=== PATIENT | female | born 1985 | race Caucasian/White ===

== ENCOUNTER 2020-08-19 16:11 | Emergency (ER) | payer OTHER, BC ==
[2020-08-19] MEDS ORDERED: KETOROLAC 30 MG/ML VIAL IVP ONE (16:45)
[2020-08-19] MEDS ORDERED: NS IV 1000 ML 1,000 ML IV SCH ×2 (16:45→18:30)
[2020-08-19 17:12] LABS: HEMATOCRIT 32 % (35-52); HEMOGLOBIN 10.5 G/DL (11.5-16.0); MEAN CORPUSCULAR HEMOGLOBIN 30 PG (25-34); MEAN CORPUSCULAR HGB CONC 33 G/DL (32-36); MEAN CORPUSCULAR VOLUME 90 FL (80-99); PLATELET COUNT 137 10^3/uL (130-400); WHITE BLOOD COUNT 1.3 10^3/uL (4.3-11.0)
[2020-08-19 17:13] LABS: BASOPHILS % (AUTO) 0 % (0-10); EOSINOPHILS % (AUTO) 1 % (0-10); LYMPHOCYTES # (AUTO) 0.2 X 10^3 (1.0-4.0); LYMPHOCYTES % (AUTO) 16 % (12-44); MEAN PLATELET VOLUME 9.8 FL (7.4-10.4); MONOCYTES # (AUTO) 0.1 X 10^3 (0.0-1.0); MONOCYTES % (AUTO) 6 % (0-12); NEUTROPHILS % (AUTO) 76 % (42-75)
--- NOTE | 2020-08-19 17:15 | Diagnostic Imaging Report ---
INDICATION: Covid positive patient, shortness of breath. EXAMINATION: Frontal chest was obtained at 4:55 p.m. COMPARISON: There is no prior study for comparison. FINDINGS: Heart and mediastinal silhouette are normal in appearance. There is some questionable minimal groundglass infiltrate in the lung bases. Upper lung zones are clear. There is no pneumothorax or pleural fluid. Patient has had previous bilateral breast surgery. Port-A-Cath over the left chest has it's tip in the SVC. IMPRESSION: Minimal ground glass infiltrates in the lung bases. No pneumothorax or pleural fluid. Dictated by: Dictated on workstation # [id number]
[2020-08-19 17:28] LABS: BUN/CREATININE RATIO 14; CARBON DIOXIDE 21 MMOL/L (21-32); CHLORIDE 101 MMOL/L (98-107); CREATININE SERUM 0.79 MG/DL (0.60-1.30); GFR ESTIMATED > 60; POTASSIUM 3.3 MMOL/L (3.6-5.0); SODIUM 135 MMOL/L (135-145)
[2020-08-19 17:29] LABS: ALANINE AMINOTRANSFERASE 48 U/L (0-55); ALBUMIN 3.8 GM/DL (3.2-4.5); ALKALINE PHOSPHATASE 79 U/L (40-136); BILIRUBIN,TOTAL 0.3 MG/DL (0.1-1.0); CALCIUM 8.5 MG/DL (8.5-10.1); GLUCOSE 88 MG/DL (70-105); TOTAL PROTEIN 6.1 GM/DL (6.4-8.2)
[2020-08-19] MEDS ORDERED: NS 100 ML (IVPB) BAG IV ONE (18:30)
[2020-08-19] MEDS ORDERED: IOHEXOL 350 MG/ML 100 ML (OMNIPAQUE 350) VIAL IV ONE (18:30)
[2020-08-19] MEDS ORDERED: HOLD METFORMIN - RECEIVED CONTRAST 20 ML VIAL IV SCH (18:30)
[2020-08-19 19:39] LABS: CLARITY,URINE SLIGHTLY CLOUDY; COLOR,URINE YELLOW
[2020-08-19 19:40] LABS: BILIRUBIN,URINE NEGATIVE (NEGATIVE); GLUCOSE, URINE (UA) NEGATIVE (NEGATIVE); KETONES,URINE 2+ (NEGATIVE); LEUKOCYTE ESTERASE ,URINE NEGATIVE (NEGATIVE); NITRITE,URINE NEGATIVE (NEGATIVE); PROTEIN,URINE NEGATIVE (NEGATIVE)
--- NOTE | 2020-08-19 19:40 | Diagnostic Imaging Report ---
INDICATION: Increasing shortness of breath and fever, Covid positive patient, history of breast cancer. TECHNIQUE: Multiple contiguous axial images were obtained through the chest after uneventful bolus administration of intravenous contrast. 3D reconstructed CTA MIP acquisitions were also performed. Auto Exposure Controls were utilized during the CT exam to meet ALARA standards for radiation dose reduction. COMPARISON: There is no prior CT for comparison. FINDINGS: There is no evidence of aortic dissection or aneurysm. Great vessel origins are patent. Pulmonary parenchymal vessels are well-opacified with no CT evidence of pulmonary emboli. There are no enlarged mediastinal or hilar lymph nodes. There are no enlarged axillary nodes. There are postsurgical changes of bilateral breast implants. Port-A-Cath over the left chest wall is noted with tip in the SVC. There is no pleural or pericardial fluid. Lung parenchymal windows demonstrate patchy groundglass and alveolar infiltrates in both lungs, worse in the lung bases, compatible with Covid pneumonia. There are benign-appearing calcifications in the right midlung. There is no suspicious pulmonary nodule. Visualized portions of the upper abdomen demonstrate splenomegaly. IMPRESSION: Patchy bilateral infiltrates are present with groundglass appearance, worse in the lung bases, compatible with Covid pneumonia. There is no CT evidence of pulmonary emboli. There is splenomegaly. There are postoperative changes with bilateral breast implants. Dictated by: Dictated on workstation # [id number]
[2020-08-19 19:41] LABS: BACTERIA,URINE FEW /HPF
[2020-08-19] MEDS ORDERED: DOXYCYCLINE 100 MG (VIBRAMYCIN) TABLET PO SCH (20:00)
[2020-08-19] MEDS ORDERED: predniSONE 20 MG TAB PO ONE (20:00)
--- NOTE | 2020-08-19 20:04 | ED General ---
General Chief Complaint: Respiratory Problems Stated Complaint: SOB; COVID+ Nursing Triage Note: positive for Covid since Aug 10. Has had 3 day hx of increasing shortness of breath and fever up to 103. Has been treating fever with tylenol. Last dose two hours prior to arrival. Nursing Sepsis Screen: Possible Sepsis Risk Source of Information: Patient Exam Limitations: No Limitations History of Present Illness Date Seen by Provider: Aug 19, 2020 Time Seen by Provider: 15:20 Initial Comments Patient is a 34-year-old female COVID positive breast-cancer survivor who has completed chemotherapy in the past 7 weeks who presents continued fever, body aches and fatigue for the past 3 days. Patient was diagnosed with COVID on 08/10/28. She has had fever up to 103 the past 2 days. Body aches and chills. She denies nausea vomiting or sweats, headache neck pain and rash. She has a nonproductive cough. She reports mild dyspnea with exertion. He is a nonsmoker non-paper does not have history of chronic lung disease. She denies leg pain or swelling. No history of DVT or PE. She is not on anticoagulation therapy. Patient does have bilateral issue expanders in place. She denies redness swelling around surgical scars and incisions and port site. She denies flank pain, urinary frequency urgency. She has irregular history periods since receiving treatment for cancer. She denies other acute symptoms or complaints. Timing/Duration: 1 Week, Getting Worse Severity: Moderate Modifying Factors: improves with Movement, improves with Rest Associated Systoms: Cough, Fever/Chills, Weakness Allergies and Home Medications Allergies Coded Allergies: Penicillins (Verified Allergy, Unknown, anaphylaxis , 08/19/20) Sulfa (Sulfonamide Antibiotics) (Verified Allergy, Unknown, anaphylaxis, 08/19/20) amoxicillin (Verified Allergy, Unknown, anaphylaxis , 08/19/20) Patient Home Medication List Home Medication List Reviewed: Yes Review of Systems Review of Systems Constitutional: see HPI EENTM: see HPI Respiratory: see HPI Cardiovascular: see HPI Gastrointestinal: see HPI Genitourinary: see HPI : No Musculoskeletal: see HPI Skin: see HPI Psychiatric/Neurological: See HPI Hematologic/Lymphatic: See HPI Immunological/Allergic: see HPI All Other Systems Reviewed Negative Unless Noted: Yes Past Aenhnmn-Ghjqck-Prdixt Hx Past Med/Social Hx: Reviewed Nursing Past Med/Soc Hx Patient Social History Alcohol Use: Denies Use Recreational Drug Use: No Smoking Status: Never a Smoker 2nd Hand Smoke Exposure: No Recent Foreign Travel: No Contact w/Someone Who Travel: No Recent Infectious Disease Expo: Yes Physical Abuse: No Sexual Abuse: No Mistreated: No Fear: No Past Medical History Surgeries: Yes (bilateral mastectomy) Respiratory: No Cardiac: No Neurological: No Genitourinary: No Gastrointestinal: No Musculoskeletal: No Endocrine: No HEENT: No Cancer: Yes Breast Did You Recieve Any Treatments: Yes What Type of Treatment Did You: Chemotherapy, Surgical Intervention Psychosocial: No Integumentary: No Physical Exam Vital Signs Vital Signs - First Documented 08/19/20 16:24 Temp 36.8 Pulse 109 Resp 16 B/P (MAP) 116/67 (83) Pulse Ox 96 Capillary Refill : Less Than 3 Seconds Height, Weight, BMI Height: '" Weight: lbs. oz. kg; BMI Method: General Appearance: Anxious Eyes: Bilateral Eye Normal Inspection, Bilateral Eye PERRL, Bilateral Eye EOMI HEENT: PERRL/EOMI, Pharynx Normal Neck: Full Range of Motion, Non Tender, Supple Respiratory: Decreased Breath Sounds; No Rales; Rhonci; No Wheezing Cardiovascular: No Murmur, Tachycardia Gastrointestinal: Non Tender, Soft Back: Normal Inspection, No CVA Tenderness Extremity: Non Tender, No Calf Tenderness Neurologic/Psychiatric: Alert, Oriented x3, No Motor/Sensory Deficits Skin: Normal Color Focused Exam Lactate Level 08/19/20 17:25: Lactic Acid Level 0.87 Lactic Acid Level Laboratory Tests Test 08/19/20 17:25 Lactic Acid Level 0.87 MMOL/L (0.50-2.00) Progress/Results/Core Measures Suspected Sepsis Recent Fever Within 48 Hours: Yes Infection Criteria Present: Documented Infection New/Unexplained Altered Menta: No Sepsis Screen: Possible Sepsis Risk SIRS Temperature: Pulse: 109 Respiratory Rate: 16 Laboratory Tests 08/19/20 16:58: White Blood Count 1.3*L Blood Pressure 116 /67 Mean: 83 08/19/20 17:25: Lactic Acid Level 0.87 Laboratory Tests 08/19/20 16:58: Creatinine 0.79, Platelet Count 137, Total Bilirubin 0.3 Results/Orders Lab Results Laboratory Tests Test 08/19/20 16:58 08/19/20 17:25 08/19/20 19:25 Range/Units White Blood Count 1.3 *L 4.3-11.0 10^3/uL Red Blood Count 3.50 L 4.35-5.85 10^6/uL Hemoglobin 10.5 L 11.5-16.0 G/DL Hematocrit 32 L 35-52 % Mean Corpuscular Volume 90 80-99 FL Mean Corpuscular Hemoglobin 30 25-34 PG Mean Corpuscular Hemoglobin Concent 33 32-36 G/DL Red Cell Distribution Width 13.4 10.0-14.5 % Platelet Count 137 130-400 10^3/uL Mean Platelet Volume 9.8 7.4-10.4 FL Immature Granulocyte % (Auto) 1 % Neutrophils (%) (Auto) 76 H 42-75 % Lymphocytes (%) (Auto) 16 12-44 % Monocytes (%) (Auto) 6 0-12 % Eosinophils (%) (Auto) 1 0-10 % Basophils (%) (Auto) 0 0-10 % Neutrophils # (Auto) 1.0 L 1.8-7.8 X 10^3 Lymphocytes # (Auto) 0.2 L 1.0-4.0 X 10^3 Monocytes # (Auto) 0.1 0.0-1.0 X 10^3 Eosinophils # (Auto) 0.0 0.0-0.3 10^3/uL Basophils # (Auto) 0.0 0.0-0.1 10^3/uL Immature Granulocyte # (Auto) 0.0 0.0-0.1 10^3/uL Sodium Level 135 135-145 MMOL/L Potassium Level 3.3 L 3.6-5.0 MMOL/L Chloride Level 101 98-107 MMOL/L Carbon Dioxide Level 21 21-32 MMOL/L Anion Gap 13 5-14 MMOL/L Blood Urea Nitrogen 11 7-18 MG/DL Creatinine 0.79 0.60-1.30 MG/DL Estimat Glomerular Filtration Rate > 60 BUN/Creatinine Ratio 14 Glucose Level 88 70-105 MG/DL Calcium Level 8.5 8.5-10.1 MG/DL Corrected Calcium 8.7 8.5-10.1 MG/DL Total Bilirubin 0.3 0.1-1.0 MG/DL Aspartate Amino Transf (AST/SGOT) 61 H 5-34 U/L Alanine Aminotransferase (ALT/SGPT) 48 0-55 U/L Alkaline Phosphatase 79 40-136 U/L C-Reactive Protein 6.54 H <0.50 MG/DL Total Protein 6.1 L 6.4-8.2 GM/DL Albumin 3.8 3.2-4.5 GM/DL D-Dimer 1.49 H 0.00-0.49 UG/ML Lactic Acid Level 0.87 0.50-2.00 MMOL/L Urine Color YELLOW Urine Clarity SLIGHTLY CLOUDY Urine pH 6.0 5-9 Urine Specific [place] 1.015 L 1.016-1.022 Urine Protein NEGATIVE NEGATIVE Urine Glucose (UA) NEGATIVE NEGATIVE Urine Ketones 2+ H NEGATIVE Urine Nitrite NEGATIVE NEGATIVE Urine Bilirubin NEGATIVE NEGATIVE Urine Urobilinogen 0.2 < = 1.0 MG/DL Urine Leukocyte Esterase NEGATIVE NEGATIVE Urine RBC (Auto) NEGATIVE NEGATIVE Urine RBC NONE /HPF Urine WBC 10-25 H /HPF Urine Squamous Epithelial Cells 10-25 H /HPF Urine Crystals NONE /LPF Urine Bacteria FEW H /HPF Urine Casts NONE /LPF Urine Mucus NEGATIVE /LPF Urine Culture Indicated YES My Orders Orders - ONDINA BALDERAS DO Cbc With Automated Diff (08/19/20 16:36) Comprehensive Metabolic Panel (08/19/20 16:36) Crp Fs (08/19/20 16:36) Fibrin Degradation Products (08/19/20 16:36) Chest 1 View Ap/Pa Only (08/19/20 16:36) Ns Iv 1000 Ml (Sodium Chloride 0.9%) (08/19/20 16:45) Ketorolac Injection (Toradol Injection) (08/19/20 16:45) Lactic Acid Analyzer (08/19/20 18:26) Blood Culture (08/19/20 18:26) Ns Iv 1000 Ml (Sodium Chloride 0.9%) (08/19/20 18:30) Ct Angio Chest W (08/19/20 18:26) Iohexol Injection (Omnipaque 350 Mg/Ml 1 (08/19/20 18:30) Received Contrast (Hold Metformin- Contr (08/19/20 18:30) Ns (Ivpb) (Sodium Chloride 0.9% Ivpb Bag (08/19/20 18:30) Blood Culture (08/19/20 18:33) Ua Culture If Indicated (1/9/21 18:33) Urine Bedside (08/19/20 18:33) Urine Culture (08/19/20 19:25) Prednisone Tablet (Deltasone Tablet) (08/19/20 20:00) Doxycycline Hyclate Tablet (Vibramycin T (08/19/20 20:00) Medications Given in ED Current Medications Medications Dose Ordered Sig/Kathy Route Start Time Stop Time Status Last Admin Dose Admin Iohexol 100 ml ONCE ONCE IV 08/19/20 18:30 08/19/20 18:35 DC 08/19/20 19:33 100 ML Ketorolac Tromethamine 30 mg ONCE ONCE IVP 08/19/20 16:45 08/19/20 16:47 DC 08/19/20 17:04 30 MG Sodium Chloride 100 ml ONCE ONCE IV 08/19/20 18:30 08/19/20 18:35 DC 08/19/20 19:34 80 ML Vital Signs/I&O 08/19/20 16:24 Temp 36.8 Pulse 109 Resp 16 B/P (MAP) 116/67 (83) Pulse Ox 96 Capillary Refill : Less Than 3 Seconds Blood Pressure Mean: 83 Departure Communication (Admissions) Chest x-ray, CT chest reviewed: Findings consistent with bilateral wrist initial viral infiltrates. No PE found per radiology report Patient was symptomatically COVID without acute respiratory distress or failure. Patient with persistent leukopenia with mild neutropenia which is been ongoing since treatment for cancer. Patient is afebrile in the emergency department and does not appear to be clinically septic. 2 L of IV fluids given and oral antibiotic and steroids. Will continue supportive care with close home monitoring with pulse oximetry monitor with strict return precautions. Patient verbalizes understanding and agreement with all discharge instructions prior to departure. Impression Primary Impression: COVID-19 Additional Impression: Neutropenia Disposition: 01 HOME, SELF-CARE Condition: Stable Departure-Patient Inst. Decision time for Depature: 20:05 Referrals: NO,LOCAL PHYSICIAN (PCP/Family) Primary Care Physician Patient Instructions: Neutropenia, Coronavirus Disease 2019 (COVID-19) ED Add. Discharge Instructions: Please increase daily fluid intake and take newly prescribed medications as directed. Use a digital pulse oximeter to to ensure oxygen saturations maintaining greater than 90%. Continue self quarantine until 3 days after symptoms fully resolved. If he develop new or worsening symptoms, please return to the emergency department. All discharge instructions reviewed with patient and/or family. Voiced understanding. Scripts Doxycycline Hyclate (Doxycycline Hyclate) 100 Mg Tablet 100 MG PO BID, #20 TAB 0 Refills Prov: ONDINA BALDERAS DO 08/19/20 Albuterol Sulfate (PROAIR HFA) 1 Puff Puff 2 PUFF IH Q4H, #1 PUFF 1 PUFF = 90 MCG Prov: ONDINA BALDERAS DO 08/19/20 Prednisone (Prednisone) 20 Mg Tab 60 MG PO DAILY for 6 Days, #18 TAB 0 Refills Prov: ONDINA BALDERAS DO 08/19/20 ONDINA BALDERAS DO Aug 19, 2020 20:04
[2020-08-19] MEDS ORDERED: PRD20T PO (20:07)
[2020-08-19] MEDS ORDERED: RT-ALBUINH IH (20:07)
[2020-08-19] MEDS ORDERED: DOXY100T2 PO (20:07)
[2020-08-19 20:22] VITALS: BP 120/76
== END 2020-08-19 20:22 | disposition home or self-care (01) ==
LOC: ER FS 16:14
DX: U07.1 COVID-19 (principal); D70.9 Neutropenia, unspecified; F41.9 Anxiety disorder, unspecified; Z85.3 Personal history of malignant neoplasm of breast; Z88.1 Allergy status to other antibiotic agents; Z88.2 Allergy status to sulfonamides; Z88.0 Allergy status to penicillin
CPT/HCPCS: 36415; 71045; 71275; 80053; 81000; 83605; 84703; 85025; 85379; 86141; 87040; 87077; 87088